=== PATIENT | female | born 1975 | race African-American/Black ===

== ENCOUNTER 2021-09-21 09:46 | Emergency (ER) | payer OTHER, MEDICARE ==
[2021-09-21] MEDS ORDERED: Boostrix 0.5 ML (Tdap) VIAL ONE (10:19)
[2021-09-21] MEDS ORDERED: Acetaminophen 500 MG TAB ONE (10:19)
== END 2021-09-21 11:20 | disposition home or self-care (01) ==
LOC: CSHERS 09:46
DX: S09.90XA Unspecified injury of head, initial encounter (principal); S80.01XA Contusion of right knee, initial encounter; V49.50XA Passenger injured in collision with unspecified motor vehicles in traffic accident, initial encounter; Z23 Encounter for immunization
CPT/HCPCS: 90471; 90715; G0390

== ENCOUNTER 2021-11-24 15:53 | Emergency (ER) | payer OTHER, MEDICARE ==
[2021-11-24] MEDS ORDERED: Acetaminophen 500 MG TAB ONE (16:20)
[2021-11-24] MEDS ORDERED: Ondansetron PF 4 MG/2 ML Vial ONE (16:20)
[2021-11-24 17:58] LABS: Bilirubin Neg (Negative); Blood, Urine 10 (Negative); Clarity Clear (Clear); Glucose, Urine (Dipstick) Normal (Negative); Ketone, Urine Negative (Negative); Leukocyte Negative (Negative); Nitrite Negative (Negative); Protein, Urine (Dipstick) 15 mg/dl (Neg-Trace); Specific Gravity, Urine 1.015 (1.002-1.036)
[2021-11-24 18:07] LABS: Bacteria/HPF None Seen HPF (None Seen); RBC/HPF 0-3 HPF (0-3); Squamous Epithelial 0-3 HPF (0-3); WBC/HPF None Seen HPF (0-3)
== END 2021-11-24 18:22 | disposition home or self-care (01) ==
LOC: CSHERS 15:53
DX: M25.511 Pain in right shoulder (principal); M54.2 Cervicalgia; L29.8 Other pruritus; R51.9 Headache, unspecified; D50.9 Iron deficiency anemia, unspecified; I25.10 Atherosclerotic heart disease of native coronary artery without angina pectoris; F17.210 Nicotine dependence, cigarettes, uncomplicated; V89.2XXA Person injured in unspecified motor-vehicle accident, traffic, initial encounter
CPT/HCPCS: 70450; 71045; 72125; 72170; 81003; 81015; 96374; J2405

== ENCOUNTER 2022-03-27 20:55 | Emergency (ER) | payer MEDICARE, OTHER | END 2022-03-27 22:03 | disposition home or self-care (01) | LOC: CSHERS 20:55 | DX: L72.8 Other follicular cysts of the skin and subcutaneous tissue (principal); I25.10 Atherosclerotic heart disease of native coronary artery without angina pectoris; D50.9 Iron deficiency anemia, unspecified; F17.210 Nicotine dependence, cigarettes, uncomplicated | CPT/HCPCS: 99282 ==

== ENCOUNTER 2022-06-23 21:42 | Emergency (ER) | payer OTHER ==
[2022-06-23 22:39] LABS: Bilirubin Neg (Negative); Blood, Urine 10 (Negative); Clarity Slightly Cloudy (Clear); Glucose, Urine (Dipstick) Normal (Negative); Ketone, Urine Negative (Negative); Leukocyte 25 (Negative); Nitrite Negative (Negative); Protein, Urine (Dipstick) Negative (Neg-Trace); Specific Gravity, Urine 1.015 (1.002-1.036); Urobilinogen Normal mg/dL (Less than 2)
[2022-06-23] MEDS ORDERED: Ketorolac Tromethamine 30 MG/ML VIAL ONE (22:39)
[2022-06-23] MEDS ORDERED: Diazepam 5 MG TAB ONE (22:39)
[2022-06-23 22:54] LABS: Bacteria/HPF 2+ HPF (None Seen); RBC/HPF 0-3 HPF (0-3)
== END 2022-06-23 23:22 | disposition home or self-care (01) ==
LOC: CSHERS 21:42
DX: N39.0 Urinary tract infection, site not specified (principal); M54.50 Low back pain, unspecified; I25.10 Atherosclerotic heart disease of native coronary artery without angina pectoris; D50.9 Iron deficiency anemia, unspecified; F17.210 Nicotine dependence, cigarettes, uncomplicated
CPT/HCPCS: 81003; 81015; 96372; 99283; J1885

== ENCOUNTER 2022-10-03 19:17 | Emergency (ER) | payer OTHER | END 2022-10-03 21:05 | disposition home or self-care (01) | LOC: CSHERS 19:17 | DX: M10.9 Gout, unspecified (principal); M25.562 Pain in left knee; I25.10 Atherosclerotic heart disease of native coronary artery without angina pectoris; F17.210 Nicotine dependence, cigarettes, uncomplicated ==

== ENCOUNTER 2022-12-29 15:29 | Emergency (ER) | payer OTHER ==
[2022-12-29] MEDS ORDERED: Ketorolac Tromethamine 30 MG/ML VIAL ONE (16:11)
== END 2022-12-29 16:35 | disposition home or self-care (01) ==
LOC: CSHERS 15:29
DX: M25.572 Pain in left ankle and joints of left foot (principal); M25.562 Pain in left knee; M54.50 Low back pain, unspecified; I25.10 Atherosclerotic heart disease of native coronary artery without angina pectoris; F17.210 Nicotine dependence, cigarettes, uncomplicated
CPT/HCPCS: 96372; 99283; J1885

== ENCOUNTER 2023-04-26 10:12 | Emergency (ER) | payer OTHER | END 2023-04-26 13:14 | disposition home or self-care (01) | LOC: CSHERS 10:12 | DX: M25.562 Pain in left knee (principal); H61.22 Impacted cerumen, left ear; I25.10 Atherosclerotic heart disease of native coronary artery without angina pectoris; F17.210 Nicotine dependence, cigarettes, uncomplicated | CPT/HCPCS: 99283 ==

== ENCOUNTER 2025-09-28 22:21 | Emergency (ER) | payer OTHER ==
[2025-09-29] MEDS ORDERED: Ketorolac Tromethamine 30 MG (1 mL) VIAL ONE (00:04)
== END 2025-09-29 00:25 | disposition home or self-care (01) ==
LOC: CSHERS 22:21
DX: K08.89 Other specified disorders of teeth and supporting structures (principal); G89.29 Other chronic pain; I10 Essential (primary) hypertension; I25.10 Atherosclerotic heart disease of native coronary artery without angina pectoris; F17.210 Nicotine dependence, cigarettes, uncomplicated
CPT/HCPCS: 96372; 99282; J1885